=== PATIENT | female | born 1955 | race Caucasian/White ===

== ENCOUNTER → 2017-01-07 | Outpatient (CLI) | payer OTHER ==
[~2017-01-07] MED LIST: REGADENOSON 0.4 MG/5 ML DISP.SYRIN. IV ONE
--- NOTE | 2017-01-07 10:27 | CARD ---
APPROVED REPORT EXAM: Two-dimensional and M-mode echocardiogram with Doppler and color Doppler. Other Information Quality : GoodHR: 55bpm Rhythm : Bradycardia INDICATION Pre-Op Dyspnea on exertion RISK FACTORS Hypertension Obesity 2D DIMENSIONS RVDd3.1 (2.9-3.5cm)Left Atrium(2D)3.8 (1.6-4.0cm) IVSd0.9 (0.7-1.1cm)Aortic Root(2D)2.8 (2.0-3.7cm) LVDd5.7 (3.9-5.9cm)LVOT Diameter2.4 (1.8-2.4cm) PWd0.7 (0.7-1.1cm)LVDs4.1 (2.5-4.0cm) FS (%) 29.0 %SV89.5 ml LVEF(%)55.0 (>50%) Aortic Valve AoV Peak Serge.127.4cm/sAoV VTI29.5cm AO Peak GR.6.5mmHgLVOT Peak Serge.90.9cm/s AO Mean GR.3mmHgAVA (VMAX)3.29cm2 Mitral Valve MV E Dughkdjm50.8cm/sMV E Peak Gr.2mmHg MV DECEL [id number] A Atueozaq10.9cm/s MV E Mean Gr.1mmHgE/A Ratio0.6 MV A Rkmvizhg32ae Pulmonary Valve PV Peak Pnutngfm13.0cm/s Tricuspid Valve TR P. Owpnzjni349ga/sTR Peak Gr.29mmHg Pulmonary Vein S1 Hjiltuik43.0cm/sD2 Xussdjyz13.6cm/s PVa isvwekyr12wric LEFT VENTRICLE The left ventricle is normal size. There is normal left ventricular wall thickness. The left ventricu lar systolic function is normal. The Ejection Fraction is 55-60%. There is normal LV segmental wall m otion. Transmitral Doppler flow pattern is Grade I-abnormal relaxation pattern. RIGHT VENTRICLE The right ventricle is normal size. There is normal right ventricular wall thickness. The right ventr icular systolic function is normal. ATRIA The left atrium size is normal. The right atrium size is normal. The interatrial septum is intact wit h no evidence for an atrial septal defect or patent foramen ovale as noted on 2-D or Doppler imaging. AORTIC VALVE The aortic valve is mildly sclerotic. The aortic valve is trileaflet. Doppler and Color Flow revealed no significant aortic regurgitation. There is no significant aortic valvular stenosis. MITRAL VALVE The mitral valve leaflets are thickened. There is no evidence of mitral valve prolapse. There is no m itral valve stenosis. Doppler and Color Flow revealed mild mitral regurgitation. TRICUSPID VALVE Doppler and Color Flow revealed trace tricuspid regurgitation. The pulmonary artery systolic pressure is estimated at 32 mmHg. There is mild pulmonary hypertension. PULMONIC VALVE The pulmonary valve is not well visualized but appears to opens well. Doppler and Color Flow revealed mild pulmonic valvular regurgitation. There is no pulmonic valvular stenosis by spectral Doppler. GREAT VESSELS The aortic root is normal in size. The ascending aorta is normal in size. The pulmonary artery is nor mal. The IVC is normal in size and collapses >50% with inspiration. PERICARDIAL EFFUSION There is no evidence of significant pericardial effusion. Critical Notification Critical Value: No <Conclusion> The left ventricular systolic function is normal. The Ejection Fraction is 55-60%. There is normal LV segmental wall motion. Transmitral Doppler flow pattern is Grade I-abnormal relaxation pattern. Mild mitral regurgitation. Trace tricuspid regurgitation. The pulmonary artery systolic pressure is estimated at 32 mmHg. There is no evidence of significant pericardial effusion.
--- NOTE | 2017-01-07 14:17 | RAD ---
APPROVED REPORT Test Type: Pharmacological Stress Nurse/Tech: Rojelio Anthony RN Test Indications: abnormal EKG, pre-op Cardiac History: see ehr Medications: see ehr Medical History: see ehr Resting ECG: SB Resting Heart Rate: 56 bpm Resting Blood Pressure: 164/68mmHg Pretest Chest Pain: None Nurse/Tech Notes Lungs CTA, S1, S2 Consent: The procedure was explained to the patient in lay terms. Informed consent was witnessed. Yao eout was entered into [employer]. History and Stress Test performed by Moses JamesNTony Pharm. Details Pharmacologic stress testing was performed using 0.4mg per 5ml of regadenoson given intravenously ove r 7-10 seconds. Stress Symptoms No chest pain or symptoms. POST EXERCISE Reason for Termination: Infusion complete Max HR: 106 bpm Max Blood Pressure: 157/78mmHg Blood Pressure response to exercise: Normal blood pressure response during stress. Chest Pain: No. Arrhythmia: Yes. Intermittent PVC ST Change: No. INTERPRETATION Stress EKG Conclusion: Baseline EKG showed sinus rhythm. No ischemic changes at peak stress. Few PV C's without any significant arrhythmias. Imaging Protocol IMAGE PROTOCOL: Rest Tc-99m/stress Tc-99m 1 day Rest: Stress: Viability: Radiopharm.Tc99m LfjgevnvwRi00t Sestamibi Ffak84pRv 34mCi Img Date 01/07/2017 01/07/2017 Inj-Img Bgio77lrs. 60min. Rest Admin Site:IV - Right WristAdministrator:RT Sanjay (R)(N) Stress Admin Site: IV - Right WristAdministrator: RT Sanjay (R)(N) STRESS DATA End Diast. Vol.93.0mlAv. Heart Rate75.0bpm End Syst. Vol.27.0mlCO Index BSA0.0L/min Myocardial Rtbg470.0gEject. Iruipexk70.0% Stress Rates Pk. Fill Rate2.97EDV/secLVtime Pk. Fill 182.03msec Pk. Empty Rate4.32ESV/secLVtime Pk. Vugig496.80msec 06/10 Pk. Fill1.49EDV/sec Stress Scores Regional WT0.00Summed WT0.00 Regional WM0.00Summed WM0.00 Study quality was good. Left Ventricular size was Normal at Rest and Stress. Lung uptake was Normal. Left Ventricular ejection fraction is 71%. LV Perfusion Scintigraphic images showed small reversible defect involving the anteroapical wall consistent with i schemia. Wall Motion Normal regional wall motion. LV Perf. Quant 17 Seg. SSS6.00 17 Seg. SRS1.00 17 Seg. SDS5.00 Stress Defect Extent (% LAD)5.00Rest Defect Extent (% LAD)0.00Rev. Defect Extent (% LAD)5.00 Stress Defect Extent (% LCX) 30.00Rest Defect Extent (% LCX)11.30Rev. Defect Extent (% LCX)22.50 Stress Defect Extent (% RCA)0.00Rest Defect Extent (% RCA)0.00Rev. Defect Extent (% RCA)0.00 Stress Defect Extent (% MAGALYS)12.40Rest Defect Extent (% MAGALYS)2.00Rev. Defect Extent (% MAGALYS)11.10 Conclusion 1. Regadenoson cardioisotope stress test showed small amount of anteroapical wall ischemia. 2. Normal left ventricular systolic function with ejection fraction calculated at 71%. 3. Low to intermediate risk for cardiac events.
== END | disposition home or self-care (01) ==
LOC: ECHO 07:55
PROVIDERS: ATTEND Internal Medicine Cardiovascular Disease
DX: Z01.818 Encounter for other preprocedural examination (principal); R07.9 Chest pain, unspecified; R06.09 Other forms of dyspnea; I08.1 Rheumatic disorders of both mitral and tricuspid valves
CPT/HCPCS: 78452; 93017; 93306; 96374; 96375; 96376; A9500; J2785

== ENCOUNTER 2017-01-30 06:44 | Outpatient (CLI) | payer OTHER ==
[2017-01-30] VITALS (9 sets, daily range): BP systolic 110–128; BP diastolic 62–73
[~2017-01-30] VITALS: Ht 174 cm; Wt 105.7 kg
[2017-01-30] MEDS ORDERED: LISI1TAB3 PO (07:05)
[2017-01-30] MEDS ORDERED: CETI10TA16 PO (07:05)
[2017-01-30] MEDS ORDERED: PROAIR HFA8.5 GM INH (07:05)
[2017-01-30] MEDS ORDERED: ASPI1TAB2 PO (07:05)
[2017-01-30] MEDS ORDERED: SULI150T PO (07:05)
[2017-01-30 07:30] LABS: HEMATOCRIT 43.2 % (36.0-47.0); HEMOGLOBIN 14.4 g/dL (12.0-15.5); RED BLOOD COUNT 4.58 x10^6/uL (3.50-5.40); RED CELL DISTRIBUTION WIDTH 13.1 % (11.5-14.5); WHITE BLOOD COUNT 10.5 x10^3/uL (4.0-11.0)
[2017-01-30 07:36] LABS: PROTHROMBIN TIME PATIENT 12.5 SEC (11.7-14.0)
[2017-01-30 08:02] LABS: CALCIUM 9.3 mg/dL (8.5-10.1); POTASSIUM 4.2 mmol/L (3.5-5.1)
[2017-01-30] MEDS ORDERED: fentaNYL PF VIAL 100 MCG/2 ML VIAL ONE (08:36)
[2017-01-30] MEDS ORDERED: MIDAZOLAM HCL/PF 5 MG/5 ML VIAL. ONE (08:36)
[2017-01-30] MEDS ORDERED: LIDOCAINE 2% 20 ML VIAL. ONE (08:38)
[2017-01-30] MEDS ORDERED: MIDAZOLAM HCL/PF 5 MG/5 ML VIAL. IV ONE (08:45)
[2017-01-30] MEDS ORDERED: LIDOCAINE 2% 20 ML VIAL. IJ ONE (08:45)
[2017-01-30] MEDS ORDERED: fentaNYL PF VIAL 100 MCG/2 ML VIAL IV ONE (08:45)
--- NOTE | 2017-01-30 08:50 | PDOC ---
MODERATE SEDATION ASSESSMENT RISKS/ALTERNATIVES Risks/Alternatives Risks and alternatives of this type of sedation and procedure discussed with: RISK/ALTERNATIVES: Patient H & P ON CHART H & P H & P on chart and reviewed for co-morbid conditions and appropriate labs. H&P ON CHART: Yes STATUS PREG STATUS ASSESSED: Yes MEDS/ALLERGIES REVIEWED Meds/Allergies Reviewed Medications and Allergies including time and route of recently administered narcotics and sedatives. MEDS/ALLERGIES REVIEWED: Yes ASA RATING ASA RATING: II AIRWAY ASSESSMENT Airway Assessment Airway patency, oral function limitations, presence of caps, crowns, dentures, partials, and ability to extend neck assessed. AIRWAY ASSESSMENT: Yes MALLAMPATI SCORE MALLAMPATI SCORE: II PRE-SEDATION ASSESSMENT PRE-SEDATION ASSESSMENT: Yes CHAO DAVIS MD Jan 30, 2017 08:50
[2017-01-30] MEDS ORDERED: CONTRAST GIVEN MC PRN (09:00)
[2017-01-30] MEDS ORDERED: IODIXANOL 320 MG/ML 100 ML VIAL. IV ONE (09:00)
[2017-01-30] MEDS ORDERED: IV NORMAL SALINE 1000ML BAG 1,000 ML IV SCH (10:01)
[2017-01-30] MEDS ORDERED: 0.9 % SODIUM CHLORIDE 10 ML DISP.SYRIN. IV PRN (10:15)
[2017-01-30] MEDS ORDERED: NITROGLYCERIN SUBLINGUAL 0.4 MG BOTTLE OF 25. SL PRN (10:15)
--- NOTE | 2017-02-04 11:20 | CARD ---
APPROVED REPORT Procedures. Left heart catheterization. Left ventriculogram. Selective coronary angiogram. The patient is a 61-year-old female with episodes of atypical chest pain being seen prior to elective surgery. A nuclear stress test showed probable reversible ischemia. In this setting a cardiac cathet erization was recommended. Risks and benefits were discussed. The patient agreed to proceed. After informed consent was obtained the patient was brought to the heart catheterization lab. The are a of the right femoral artery was prepared in the usual manner with Betadine, sterile draping and loc al anesthetic. An 18-gauge needle was used to enter the right femoral artery, a wire placed and a 6 F rench sheath placed over wire. A 6 Niuean JL4 diagnostic catheter was used to engage the left coronar y system and sequential injections in various views were obtained. A 6 Niuean Parmjit right diagnost ic catheter was used to engage the right coronary artery system and sequential injections in various views were obtained. A pigtail catheter was advanced to the left ventricle. Pressures were obtained. A 30 CLEMENTS left ventriculogram was performed. The catheter was removed from the patient. Injection of the sheath showed normal placement. The sheath was removed and sealed with an Angio-Seal product. The re were no immediate complications. Hemodynamics. Left ventricular pressure of 132/10 and aortic root pressure of 128/60. Coronaries. Left main. Left main was a normal-size vessel with no lesions. Left anterior descending. The LAD was a moderate size vessel with normal distribution. It had a mid 1 0% lesion. Left circumflex. The left circumflex was a large dominant vessel. It had a 15% mid lesion. Right coronary artery. Right coronary was a moderate size vessel. It had no lesions. Left ventriculogram. The left ventricle had low normal LV systolic function with an ejection fraction of 50-55%. <Conclusion> Mild coronary artery disease. Low normal LV systolic function.
== END 2017-01-30 13:20 | disposition home or self-care (01) ==
LOC: CCL 06:44
PROVIDERS: ATTEND Internal Medicine Cardiovascular Disease
DX: I25.10 Atherosclerotic heart disease of native coronary artery without angina pectoris (principal); E78.00 Pure hypercholesterolemia, unspecified; J45.909 Unspecified asthma, uncomplicated; M19.91 Primary osteoarthritis, unspecified site; F41.9 Anxiety disorder, unspecified; Z86.69 Personal history of other diseases of the nervous system and sense organs; Z72.0 Tobacco use; Z90.49 Acquired absence of other specified parts of digestive tract; Z87.442 Personal history of urinary calculi; Z87.39 Personal history of other diseases of the musculoskeletal system and connective tissue; Z88.0 Allergy status to penicillin
CPT/HCPCS: 36415; 80048; 85027; 85610; 85730; 93458; 99152; 99153; C1769; C1771; C1892; G0269; J1644; J2250; J3010; J2001

== ENCOUNTER 2017-03-04 19:08 | Emergency (ER) | payer OTHER ==
[~2017-03-04] VITALS: Ht 172.7 cm; Wt 105.7 kg
[~2017-03-04 19:08] MED LIST changes: +ASPI-621 PO; +CETI10TA16 PO; +LISI1TAB3 PO; +PROAIR HFA8.5 GM INH; -REGADENOSON 0.4 MG/5 ML DISP.SYRIN. IV ONE; +SULI150T PO
[2017-03-04] MEDS ORDERED: IV NORMAL SALINE 1000ML BAG 1,000 ML IV ONE (19:45)
[2017-03-04 19:48] LABS: BILIRUBIN,URINE NEGATIVE (NEG); GLUCOSE,URINE NEGATIVE (NEG); NITRITE,URINE NEGATIVE (NEG); PH,URINE 5.5; PROTEIN,URINE NEGATIVE (NEG-TRACE); UROBILINOGEN,URINE 0.2 mg/dL (0.2 mg/dL)
[2017-03-04 19:58] LABS: BACTERIA,URINE MODERATE /HPF (0-FEW); RBC,URINE 0 /HPF (0-2); SQUAMOUS EPITHELIAL CELL,UR MOD /LPF; WBC,URINE OCC /HPF (0-4)
[2017-03-04 20:07] LABS: BASO # 0.1 x10^3/uL (0.0-0.2); BASO % 1 % (0-3); EOS % 1 % (0-3); HEMATOCRIT 45.2 % (36.0-47.0); HEMOGLOBIN 14.8 g/dL (12.0-15.5); LYMPH # 1.4 x10^3/uL (1.0-4.8); LYMPH % 10 % (24-48); MEAN CORPUSCULAR HEMOGLOBIN 31 pg (25-35); MEAN CORPUSCULAR HGB CONC 33 g/dL (31-37); MEAN CORPUSCULAR VOLUME 96 fL (79-100); MONO % 5 % (0-9); NEUT % 83 % (31-73); PLATELET COUNT 348 x10^3/uL (140-400); RED BLOOD COUNT 4.73 x10^6/uL (3.50-5.40); RED CELL DISTRIBUTION WIDTH 13.1 % (11.5-14.5); WHITE BLOOD COUNT 13.4 x10^3/uL (4.0-11.0)
[2017-03-04 20:25] LABS: CALCIUM 10.2 mg/dL (8.5-10.1); CREATININE 1.1 mg/dL (0.6-1.0); GFR 50.2; POTASSIUM 3.8 mmol/L (3.5-5.1)
[2017-03-04 20:31] LABS: ALBUMIN 4.3 g/dL (3.4-5.0); ALBUMIN/GLOBULIN RATIO 0.9 (1.0-1.7); TOTAL BILIRUBIN 0.4 mg/dL (0.2-1.0); TOTAL PROTEIN 8.9 g/dL (6.4-8.2)
[2017-03-04 20:51] VITALS: BP 139/72
--- NOTE | 2017-03-04 21:31 | PHYS DOC ---
Past Medical History Past Medical History: Diabetes-Type II, Hypertension, Other Additional Past Medical Histor: PE's Past Surgical History: Appendectomy, Cholecystectomy, Other Additional Past Surgical Histo: meniscus repair, lumpectomy groin, gum sx, cyst left ear Alcohol Use: Occasionally Drug Use: None Adult General Chief Complaint Chief Complaint: BLOOD SUGAR PROBLEM HPI HPI Patient is a 61 year old female who presents here today secondary to further evaluation of her blood sugar. Patient reports that she was recently diagnosed with a pulmonary embolism while she was in hospital last week she was also diagnosed with new-onset diabetes. Patient is currently taking Januvia and metformin however she reports that today she started feeling shaky. She talked to the nursing station at the hospital that she was just discharged from a day requested that she take her sugar tablets a sandwich and some juice. Patient denies any new symptoms. Patient has any fevers shakes chills nausea vomiting diarrhea chest pain shortness of breath cough cold rhinorrhea. Patient is eating and drinking well. Patient reports that she has put herself on an extremely strict diet with no cords and she thinks is probably why her blood sugar dropped. Patient reports she currently feels back to her baseline self. Patient reports that while she was at work she did not have her blood sugar meter with her. Patient reports that she told her to be her here in the hospital. In the parking lot she checked her blood sugar and her blood sugar was greater than 202 she can in for further evaluation. Review of systems Constitutional: Denies fever or chills Eyes: Denies change in visual acuity, redness, or eye pain All other review systems are negative except as documented in the history of present illness portion. Physical exam Constitutional: Well developed, well nourished, no acute distress, non-toxic appearance. HENT: Normocephalic, atraumatic, bilateral external ears normal, oropharynx moist, no oral exudates, nose normal. Eyes: conjunctiva normal, no discharge. Neck: Normal range of motion, no tenderness, supple, no stridor. Cardiovascular:Heart rate regular rhythm, Lungs & Thorax: Bilateral breath sounds clear to auscultation Abdomen: Bowel sounds normal, soft, no tenderness, no masses, no pulsatile masses. Skin: Warm, dry, Back: No tenderness, Extremities: No tenderness, no cyanosis, Neurologic: Alert and oriented X 3, normal motor function, normal sensory function, no focal deficits noted. Psychologic: Affect normal, judgement normal, mood normal. Assessment and plan This is a 61-year-old female who presents here today secondary to hyperglycemia further evaluation of her new onset type 2 diabetes. Patient's clinically hemodynamically stable. Patient is not exhibiting any signs or symptoms of be consistent with DKA. Patient does not appear to be clinically dehydrated. Patient had a liter of saline IV given and her blood sugar currently is approximate 155. Patient has no signs or symptoms consistent with an infection. Patient was instructed to call her primary care physician in the morning for further diabetes counseling and instructions. Patient reports that she is supposed to go to a diabetes education course. Patient's clinically hemodynamically stable for discharged home at this time. There is no further indication for inpatient or any further ER evaluation at this time. Current Medications Current Medications Current Medications Medications (Trade) Dose Ordered Sig/Elijah Start Time Stop Time Status Last Admin Dose Admin Sodium Chloride 1,000 ml @ 1,000 mls/hr 1X ONCE 03/04/17 19:45 03/04/17 20:44 DC 03/04/17 19:46 1,000 MLS/HR Allergies Allergies Allergies Coded Allergies Type Severity Reaction Last Updated Verified Penicillins Allergy Intermediate Itching 01/07/17 Yes Current Patient Data Vital Signs Vital Signs Date Time Temp Pulse Resp B/P (MAP) Pulse Ox O2 Delivery O2 Flow Rate FiO2 03/04/17 20:51 79 18 139/72 (94) 99 Room Air 03/04/17 19:14 97.6 97.6 Lab Values Laboratory Tests Test 03/04/17 19:20 03/04/17 19:35 03/04/17 19:50 03/04/17 21:11 Glucose (Fingerstick) 270 mg/dL (70-99) H 159 mg/dL (70-99) H Urine Collection Type Unknown Urine Color Yellow Urine Clarity Clear Urine pH 5.5 Urine Specific [place] 1.010 Urine Protein Negative mg/dL (NEG-TRACE) Urine Glucose (UA) Negative mg/dL (NEG) Urine Ketones (Stick) Trace mg/dL (NEG) Urine Blood Negative (NEG) Urine Nitrite Negative (NEG) Urine Bilirubin Negative (NEG) Urine Urobilinogen Dipstick 0.2 mg/dL (0.2 mg/dL) Urine Leukocyte Esterase Negative (NEG) Urine RBC 0 /HPF (0-2) Urine WBC Occ /HPF (0-4) Urine Squamous Epithelial Cells Mod /LPF Urine Bacteria Moderate /HPF (0-FEW) Urine Mucus Slight /LPF White Blood Count 13.4 x10^3/uL (4.0-11.0) H Red Blood Count 4.73 x10^6/uL (3.50-5.40) Hemoglobin 14.8 g/dL (12.0-15.5) Hematocrit 45.2 % (36.0-47.0) Mean Corpuscular Volume 96 fL (79-100) Mean Corpuscular Hemoglobin 31 pg (25-35) Mean Corpuscular Hemoglobin Concent 33 g/dL (31-37) Red Cell Distribution Width 13.1 % (11.5-14.5) Platelet Count 348 x10^3/uL (140-400) Neutrophils (%) (Auto) 83 % (31-73) H Lymphocytes (%) (Auto) 10 % (24-48) L Monocytes (%) (Auto) 5 % (0-9) Eosinophils (%) (Auto) 1 % (0-3) Basophils (%) (Auto) 1 % (0-3) Neutrophils # (Auto) 11.1 x10^3uL (1.8-7.7) H Lymphocytes # (Auto) 1.4 x10^3/uL (1.0-4.8) Monocytes # (Auto) 0.7 x10^3/uL (0.0-1.1) Eosinophils # (Auto) 0.2 x10^3/uL (0.0-0.7) Basophils # (Auto) 0.1 x10^3/uL (0.0-0.2) Sodium Level 138 mmol/L (136-145) Potassium Level 3.8 mmol/L (3.5-5.1) Chloride Level 98 mmol/L (98-107) Carbon Dioxide Level 27 mmol/L (21-32) Anion Gap 13 (6-14) Blood Urea Nitrogen 23 mg/dL (7-20) H Creatinine 1.1 mg/dL (0.6-1.0) H Estimated GFR (Cockcroft-Gault) 50.2 BUN/Creatinine Ratio 21 (6-20) H Glucose Level 218 mg/dL (70-99) H Calcium Level 10.2 mg/dL (8.5-10.1) H Total Bilirubin 0.4 mg/dL (0.2-1.0) Aspartate Amino Transferase (AST) 47 U/L (15-37) H Alanine Aminotransferase (ALT) 86 U/L (14-59) H Alkaline Phosphatase 159 U/L (46-116) H Troponin I Quantitative < 0.017 ng/mL (0.000-0.055) Total Protein 8.9 g/dL (6.4-8.2) H Albumin 4.3 g/dL (3.4-5.0) Albumin/Globulin Ratio 0.9 (1.0-1.7) L Lipase 289 U/L (73-393) Laboratory Tests 03/04/17 19:50 Laboratory Tests 03/04/17 19:50 EKG EKG [] Radiology/Procedures Radiology/Procedures [] Course & Med Decision Making Course & Med Decision Making Pertinent Labs and Imaging studies reviewed. (See chart for details) [] Dragon Disclaimer Dragon Disclaimer This electronic medical record was generated, in whole or in part, using a voice recognition dictation system. Departure Departure Impression: Primary Impression: Hyperglycemia Additional Impression: Type 2 diabetes mellitus Disposition: 01 HOME, SELF-CARE Condition: IMPROVED Referrals: SAMIR BRANHAM MD (PCP) Patient Instructions: Hyperglycemia, Type 2 Diabetes Mellitus, Adult Additional Instructions: Please follow up with her family doctor for further evaluation of your new onset diabetes. Problem Qualifiers ANNABEL DE LEON MD Mar 04, 2017 21:31
== END 2017-03-04 21:59 | disposition home or self-care (01) ==
LOC: ER 19:08
DX: E11.65 Type 2 diabetes mellitus with hyperglycemia (principal); I10 Essential (primary) hypertension; Z86.711 Personal history of pulmonary embolism; Z90.49 Acquired absence of other specified parts of digestive tract; Z88.0 Allergy status to penicillin
CPT/HCPCS: 36415; 80053; 81001; 82962; 83690; 84484; 85025; 87086; 96360; 99284; J7030

== ENCOUNTER → 2017-09-11 | Outpatient (CLI) | payer OTHER ==
[~2017-09-11] MED LIST changes: -ASPI-621 PO; -CETI10TA16 PO; +CONTRAST GIVEN MC; -LISI1TAB3 PO; -PROAIR HFA8.5 GM INH; -SULI150T PO
[2017-09-11] MEDS: IOHEXOL 300 MG/ML 100ML VIAL. IV (12:52)
[2017-09-11 13:00] LABS: ISTAT CREATININE 0.9 mg/dL (0.6-1.1)
== END | disposition home or self-care (01) ==
LOC: KCIC CT 12:20
DX: R07.89 Other chest pain (principal); Z86.711 Personal history of pulmonary embolism
CPT/HCPCS: 71275; 82565; Q9967

== ENCOUNTER → 2017-10-15 | Outpatient (CLI) | payer OTHER | END | disposition home or self-care (01) | LOC: KCIC US 14:56 | DX: R93.8 Abnormal findings on diagnostic imaging of other specified body structures (principal); Z86.711 Personal history of pulmonary embolism | CPT/HCPCS: 76536 ==

== ENCOUNTER → 2019-08-03 | Outpatient (CLI) | payer OTHER ==
[~2019-08-03] MED LIST changes: +ALBU2.5V8 INH; +ASPI-621 PO; +CETI10TA16 PO; -CONTRAST GIVEN MC; +LISI1TAB23 PO; +SULI150T PO
--- NOTE | 2019-08-03 15:36 | KCIC ---
EXAM: Bilateral screening mammogram. HISTORY: 63-year-old female presents for screening mammography. TECHNIQUE: Full-field digital craniocaudal and mediolateral oblique views of both breasts are obtained for evaluation. Computer aided detection with WrnchD software version 9.3 was applied. COMPARISON: 08/28/2011 BREAST PARENCHYMAL DENSITY: Level C - Heterogeneously dense. FINDINGS: There is no new suspicious mass, microcalcification or region of architectural distortion. There are stable areas of asymmetry within both breasts. There are benign calcifications within both breasts. IMPRESSION: BI-RADS Category 2: Benign finding(s). RECOMMENDATION: Annual mammography is recommended. If your mammogram demonstrates that you have dense breast tissue, which could hide abnormalities, and if you have other risk factors for breast cancer that have been identified, you might benefit from supplemental screening tests that may be suggested by your ordering physician. Dense breast tissue, in and of itself, is a relatively common condition. This information is not provided to cause undue concern, but rather to raise your awareness and to promote discussion with your physician regarding the presence of other risk factors, in addition to dense breast tissue. A report of your mammography results will be sent to you and your physician. You should contact your physician if you have any questions or concerns regarding this report. Mammography is a sensitive method for finding small breast cancers, but it does not detect them all and is not a substitute for careful clinical examination. A negative mammogram does not negate a clinically suspicious finding and should not result in delay in biopsying a clinically suspicious abnormality. PQRS compliance statement - Patient information was entered into a reminder system with a target due date for the next mammogram. "Our facility is accredited by the [employer] Mammography Program." Electronically signed by: Kristen Crabtree MD (08/03/2019 3:33 PM) [facility]
== END ==
LOC: KCIC MAMMO 14:58
PROVIDERS: ATTEND Family Medicine
DX: Z12.31 Encounter for screening mammogram for malignant neoplasm of breast (principal)
CPT/HCPCS: 77067

== ENCOUNTER → 2020-09-13 | Outpatient (CLI) | payer OTHER ==
--- NOTE | 2020-09-14 10:21 | KCIC ---
EXAM: XR ABDOMEN 1V 09/13/2020 3:00 PM CLINICAL INDICATION: Back pain, right flank pain, recent kidney stone COMPARISON: None TECHNIQUE: AP view of the abdomen FINDINGS: Bowel gas pattern is nonspecific and nonobstructive. Moderate volume of stool. No definite radiopaque nephrolithiasis. There are cholecystectomy clips. Calcified uterine fibroids are noted. T here is mild levoscoliosis and moderate degenerative disc disease in the lumbar spine. The bones appe ar demineralized. IMPRESSION: No definite nephrolithiasis. Electronically signed by: Vanessa Camacho MD (09/14/2020 10:19 AM) [id number]
== END ==
LOC: KCIC 14:09
PROVIDERS: ATTEND Family Medicine
DX: M51.36 Other intervertebral disc degeneration, lumbar region (principal); M54.5 Low back pain; D25.9 Leiomyoma of uterus, unspecified; M41.86 Other forms of scoliosis, lumbar region; Z90.49 Acquired absence of other specified parts of digestive tract
CPT/HCPCS: 74018

== ENCOUNTER → 2021-06-24 | Outpatient (CLI) | payer OTHER ==
[~2021-06-24] MED LIST changes: -LISI1TAB23 PO; +LISI1TAB35 PO
--- NOTE | 2021-06-24 16:11 | KCIC ---
Bilateral digital screening mammograms: Reason for examination: Routine screening. Comparison is made to previous studies dated 08/03/2019 and 08/28/2011. Interpretation was made with the benefit of CAD. The skin and nipples show no abnormalities. No abnormal axillary lymph nodes are seen. The breast par enchyma is heterogeneously dense. (Breast density: Category C) There continue to be small nodular par enchymal densities present bilaterally which are stable. In the right breast however, there appear to be new nodules anteriorly at approximately the 3:00 B position 6.5 cm from the nipple measuring 1 cm in size and in the central 1:00 B position of the right breast approximately 12 cm from the nipple m easuring 1.2 cm in size. Further evaluation with ultrasound is recommended. There are no other new do minant masses, suspicious calcifications or architectural distortion. Benign-appearing calcifications are again seen bilaterally. Impression: Small nodular densities in the right breast probably at the 3:00 B position 6.5 cm from the nipple me asuring 1 cm in size and in the central 1:00 B position of the right breast 12 cm from the nipple gen suring 1.2 cm in size. Recommend further evaluation with ultrasound. Your patient's mammogram demonstrates that she has dense breast tissue (breast density category C or D), which could hide abnormalities, and if she has other risk factors for breast cancer that have bee n identified, she might benefit from supplemental screening tests that may be suggested by you as her ordering physician. Dense breast tissue, in and of itself, is a relatively common condition. Therefo re, this information is not provided to cause undue concern, but rather to raise your awareness and t o promote discussion with your patient regarding the presence of other risk factors, in addition to d ense breast tissue. Your patient's mammography results will be sent to her. BI-RADS Category 0: Incomplete. Needs additional imaging evaluation. "Our facility is accredited by the [employer] Mammography Program." This patient's information has been entered into a reminder system for the patient to be notified wit h the results of her examination and a target date for the next mammogram. Electronically signed by: Diana Puente MD (06/24/2021 4:08 PM) [id number]
--- NOTE | 2021-06-24 16:45 | KCIC ---
INDICATION: Screening for osteopenia/osteoporosis. Reason: MENOPAUSAL / Spl. Instructions: / Histor y: COMPARISON: None. TECHNIQUE: Bone densitometry was performed through the lumbar spine and proximal femur. IMPRESSION: Lumbar Spine: BMD: 0.9 T-Score: -1.3 Range: Osteopenic. Degenerative changes spine. Proximal Femur: BMD: 0.7 T-Score: -2.0 Range: Osteopenic World Health Organization Criteria for Bone Density: T-Score: > -1.0: Normal Range < -1.0 to -2.5: Osteopenic Range < -2.5: Osteoporotic Range Electronically signed by: Sushil Blandon MD (06/24/2021 4:43 PM) [id number]
== END ==
LOC: KCIC MAMMO 15:35
PROVIDERS: ATTEND Family Medicine
DX: Z12.31 Encounter for screening mammogram for malignant neoplasm of breast (principal); M85.89 Other specified disorders of bone density and structure, multiple sites; M47.819 Spondylosis without myelopathy or radiculopathy, site unspecified; Z78.0 Asymptomatic menopausal state
CPT/HCPCS: 77067; 77080

== ENCOUNTER → 2021-07-23 | Outpatient (CLI) | payer OTHER ==
--- NOTE | 2021-07-23 16:37 | KCIC ---
Right breast diagnostic digital mammograms: Reason for examination: Calcifications on screening mammogram. Comparison is made to previous study dated 06/24/2021. Coned compression magnification views were obtained in CC and true lateral projections. There appear to be some clustered punctate calcifications adjacent to coarse calcifications centrally in the 12:00 position of the right breast 1.5 cm above the nipple line and located approximately 12 cm posterior to the nipple. These may represent some sclerosing adenosis but appear to be new since p revious exam. IMPRESSION: New clustered calcifications in the central 12:00 position of the right breast 12 cm posterior to the nipple. Further evaluation with stereotactic biopsy is recommended. These calcifications do not silvina espond to the area of concern seen on ultrasound examination. BI-RADS Category 4: Suspicious. Right breast ultrasound: Ultrasound examination of the right breast and axilla was performed. At the 1:00 position 9 cm from the nipple, there is a 1.4 cm hypoechoic lesion with some punctate ech ogenicity which may represent calcifications. At the 3:00 position 5.5 cm from the nipple, there appe ars to be a 9.9 mm cystic lesion. There is some ductal ectasia in the retroareolar position. No abnor mal appearing lymph nodes are seen in the right axilla. IMPRESSION: 1.4 cm hypoechoic nodule at the 1:00 position 9 cm from the nipple which appears contained some echog enic foci which may represent calcifications. Further evaluation with ultrasound-guided biopsy is rec ommended. Following the ultrasound-guided biopsy on postbiopsy mammogram, evaluate correlation of the biopsy site with the calcification seen mammographically. If these do not correlate, further evaluat ion with stereotactic biopsy is recommended. BI-RADS Category 4: Suspicious. These findings have been discussed with the patient and the claim review medical director for Dr. Clemons was notif ied about these findings via a message left on voicemail available at 4:30 PM on 07/23/2021. "Our facility is accredited by the [employer] Mammography Program." Electronically signed by: Diana Puente MD (07/23/2021 4:35 PM) [id number]
== END ==
LOC: KCIC US 14:03
PROVIDERS: ATTEND Family Medicine
DX: R92.1 Mammographic calcification found on diagnostic imaging of breast (principal); N63.11 Unspecified lump in the right breast, upper outer quadrant
CPT/HCPCS: 76641; 77065

== ENCOUNTER → 2021-08-12 | Outpatient (CLI) | payer OTHER ==
[~2021-08-12] MED LIST changes: +LIDOCAINE 1% Multi-Dose 20 ML VIAL. INJ ONE; +LIDOCAINE 2%/EPI 1:100,000 20 ML VIAL. INJ ONE
--- NOTE | 2021-08-12 13:31 | RAD ---
MG STERO NEEDLE LOC BRST RT, US BREAST BIOPSY 1ST LESION, MG DIAGNOSTICUNILAT MAMMO Clinical Indication: Microcalcifications 12:00 position 12 cm from the nipple. Hypoechoic nodule 1:00 position 9 cm from the nipple. Comparison: Diagnostic right mammogram and breast ultrasound 07/23/2021. Procedure: Ultrasound guided right breast biopsy: Relative benefits, risks including bleeding, infection, damage to blood vessels, and pain; and altern atives to the procedure were discussed and written informed consent was obtained. With sterile technique, local anesthesia and ultrasound guidance, percutaneous biopsy was performed w ith a 14-gauge needle and multiple passes were obtained through the target. Needle removed, hemostasi s achieved. A marker was placed, and post procedure CC and ML views were obtained. A biopsy clip is at the expect ed location. The area biopsied is separate from the microcalcifications. The procedure was well tolerated. There is no immediate complication. Stereotactic right breast biopsy: The risks including bleeding, infection, damage to blood vessel, and pain; alternatives, and benefits of the procedure are discussed with the patient. Written informed consent is obtained. A timeout pro cedure was performed. Patient is positioned upright. A superior approach is utilized. Stereotactic views were obtained. Ski n site is clean in normal sterile fashion. 1% lidocaine is used for superficial anesthesia. 1% lidoca ine with epinephrine is used for deep anesthesia. Using sterile technique and guidance, vacuum assisted core biopsy samples were obtained. Biopsy marke r is deployed. The needle is removed. Hemostasis achieved. Patient tolerated the procedure well. Ther e is no immediate complication. Specimen radiograph demonstrates numerous microcalcifications in the sample. Postprocedure CC and ML mammogram views obtained. The biopsy clip is in the region of the previously seen microcalcifications. No residual microcalcifi cations are appreciated. Impression: 1. Ultrasound guided right breast biopsy. 2. Stereotactic guided biopsy of right breast microcalcifications. Pathology is pending. Electronically signed by: Luis Antonio Stevens MD (08/12/2021 1:28 PM) [facility]
--- NOTE | 2021-08-16 17:15 | PATHOLOGY ---
[facility] Accession Number: [id number] . 01 Material submitted: . PART A: breast - RIGHT BREAST MASS 1:00 9CMFN. Modifiers: right PART B: breast - RIGHT BREAST TISSUE. Modifiers: right . 01 Clinical history: . RIGHT BREAST MASS . 02 Diagnosis: A. Breast tissue, right breast mass 1:00 9 cm from nipple needle biopsies: - Stromal fibrosis with focal mild duct ectasia and microcalcifications. . B. Breast tissue, right breast calcifications stereotactic needle biopsies: - Papillary lesion. See comment. - Calcifications identified. (JPM:composition weatherboard applier:db; 08/14/2021) MBR 08/16/2021 1444 Local . 02 Comment: Sections of the right breast stereotactic biopsy reveal multiple fragments of a papillary lesion which are largely unattached to breast stroma and parenchyma. The fragmented papillary lesions have a central fibrovascular core and are surmounted by a stratified layer of relatively uniform cells with focal apocrine metaplasia. There are focal micropapillary projections and focal bridging of the epithelium lining the papillary lesions. Segments of intact breast parenchyma show focal ductal epithelial hyperplasia. There are focal coarse calcifications present. Immunoperoxidase stains for myoepithelial cells are obtained and yield the following results: . p63 (B1): Presence of myoepithelial cells within papillary lesion . Smooth muscle myosin heavy chain (B1): Presence of myoepithelial cells within papillary lesion . p63 (B2): Presence of myoepithelial cells within papillary lesion . Smooth muscle myosin heavy chain (B2): Presence of myoepithelial cells within papillary lesion . 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 The differential diagnosis includes papilloma with atypia. As this is a papillary lesion, would recommend excision. The case is also examined by Dr. Giuliana Judd, who concurs with the diagnosis. (JPM/db; 08/16/2021) . Special stains performed: Immunoperoxidase stains for p63 on B1 and B2 and smooth muscle myosin heavy chain on B1 and B2 . 02 Electronically signed: . Anders Barkley MD, Pathologist NPI- [id number] . 01 Gross description: . A. The specimen is received in formalin, labeled "Tisch, Genny, Rt breast 100 9 cmFN" and consists of multiple cylindrical fatty fibrotic tissues ranging in length from 0.3 cm to 1.8 cm and each averaging 0.2 cm diameter. The specimen is submitted in toto in 3 cassettes. The cold ischemic time is less than 60 seconds. The total time in formalin is 9 hours. . B. The specimen is received in formalin, labeled "Tisch, Genny, Rt breast calcifications" and consists of multiple fatty cylindrical tissue fragments aggregating 2.0 x 1.9 x 0.3 cm which are submitted in toto in 2 cassettes. The cold ischemic time is 4 minutes. The total time in formalin is 8 hours. (KLAMATH; 08/12/2021) DKA/DKA 08/12/2021 1601 Local . 02 Pathologist provided ICD-10: N60.31, N60.41 . 02 CPT . 762189, 634630, B08744, [id number] Specimen Comment: A courtesy copy of this report has been sent to [phone] Specimen Comment: Report sent to Specimen Comment: A duplicate report has been generated due to demographic updates. Performed at: 01 [facility] [address], [place] [id number] MD Marques Good MD Phone: [phone] Performed at: 02 [facility] [address] [place], [place] [id number] MD Anders Barkley MD Phone: [phone]
== END | disposition home or self-care (01) ==
LOC: US 08:24
PROVIDERS: ATTEND Surgery
DX: R92.1 Mammographic calcification found on diagnostic imaging of breast (principal); R92.8 Other abnormal and inconclusive findings on diagnostic imaging of breast; N63.12 Unspecified lump in the right breast, upper inner quadrant; N60.31 Fibrosclerosis of right breast; N60.41 Mammary duct ectasia of right breast; I10 Essential (primary) hypertension; E78.00 Pure hypercholesterolemia, unspecified; J45.909 Unspecified asthma, uncomplicated; M19.90 Unspecified osteoarthritis, unspecified site; M10.9 Gout, unspecified; F41.9 Anxiety disorder, unspecified; Z79.82 Long term (current) use of aspirin; Z79.899 Other long term (current) drug therapy; Z90.49 Acquired absence of other specified parts of digestive tract; Z98.890 Other specified postprocedural states; Z88.0 Allergy status to penicillin; Z72.89 Other problems related to lifestyle
CPT/HCPCS: 19081; 19083; 77065; A4648; C1819; J3490

== ENCOUNTER 2021-09-12 07:24 | Day surgery (SDC) | payer OTHER ==
[~2021-09-12] VITALS: Ht 174 cm; Wt 103.0 kg
[~2021-09-12 07:24] MED LIST changes: +ATOR20TA58 PO; +BUPIVACAINE-EPI 0.5% 30 ML VIAL KIT. ONE; +CHOL5000 PO; +FEBU40TA PO; +GLIP2.5T4 PO; +IBUP-1007 PO; -LIDOCAINE 1% Multi-Dose 20 ML VIAL. INJ ONE; +LIDOCAINE 1%/EPI 1:100,000 20 ML VIAL. ONE; -LIDOCAINE 2%/EPI 1:100,000 20 ML VIAL. INJ ONE; +METF500T16 PO
[2021-09-12] MEDS ORDERED: INSULIN LISPRO 100 UNIT/ML 3ML VIAL for OP,RR ONLY. SQ PRN (07:45)
[2021-09-12 07:56] VITALS: BP 146/68
[2021-09-12] MEDS ORDERED: IV RINGERS,LACTATED 1000ML 1,000 ML IV SCH (08:15)
[2021-09-12] MEDS ORDERED: PROPOFOL 10 MG/ML (20ML) VIAL. IV ONE (09:59)
[2021-09-12] MEDS ORDERED: ONDANSETRON PF 4 MG/2 ML VIAL. ONE (10:00)
[2021-09-12] MEDS ORDERED: DEXAMETHASONE SOD PHOS 4 MG/ML VIAL ONE (10:00)
[2021-09-12] MEDS ORDERED: LIDOCAINE 2% PF 5 ML VIAL. ONE (10:00)
[2021-09-12] MEDS ORDERED: LIDOCAINE 1% Multi-Dose 20 ML VIAL. ONE (10:00)
[2021-09-12] MEDS ORDERED: fentaNYL PF VIAL 100 MCG/2 ML VIAL ONE ×2 (10:23→12:07)
[2021-09-12] MEDS ORDERED: SEVOFLURANE 61 TO 120 MINUTES. IH ONE (10:49)
[2021-09-12] MEDS ORDERED: ePHEDrine PF IN SALINE 50 MG/10 ML SYRINGE. IV ONE (11:33)
--- NOTE | 2021-09-12 12:12 | PDOC4 ---
Operative Note Operative Note Operative Note: Preoperative Diagnosis: Right breast mass Postoperative Diagnosis: Same Procedure: Wire localized excisional right breast biopsy Surgeon: Emerson Measurer Machine: ESTELLE Yates, Alex Mack MS 3 Anesthesia: General EBL: 20 mL Specimen: Right breast specimen to pathology Drains: None Complications: None Indication: The patient is a 65-year-old female who recently underwent a core needle right breast biopsy for mammographic abnormality. This identified a papillary lesion and she was referred for a wider surgical excision. The details and risks of surgery were discussed with the patient. The risks include bleeding, infection, inability to localize, pain, scar tissue, wound healing problems, anesthetic risk, potential need for additional surgery procedure. She understands and would like to proceed. Description: The patient was initially taken to radiology where she underwent wire localization of the lesion in question. She was then brought to the operating room. General anesthesia was performed. The right breast was prepped with ChloraPrep and draped in a standard surgical manner. The wire was seen entering the superior medial aspect. An incision was made adjacent to the wire with a scalpel. Cautery dissection was carried down into the breast parenchyma. The wire was identified and followed toward its distal tip. A generous amount of breast tissue was excised along the course of the wire. The specimen was fully excised and sent to x-ray. Specimen radiograph confirmed the wire and clip to be present. Hemostasis was achieved with cautery. The subcutaneous tissue was approximated with 3-0 Vicryl. Skin was closed with 4-0 Monocryl and infiltrated with half percent Marcaine with epinephrine. Steri-Strips and a sterile dressing were applied. The patient tolerated the procedure well and was sent to the recovery room in stable condition. At the end the case all counts were correct. PIYUSH DAMICO MD Sep 12, 2021 12:12
[2021-09-12] MEDS ORDERED: fentaNYL PF VIAL 100 MCG/2 ML VIAL IVP PRN ×2 (12:15)
[2021-09-12] MEDS ORDERED: HYDR-2761 PO (12:15)
[2021-09-12] MEDS ORDERED: PROCHLORPERAZINE 10 MG/2 ML VIAL. IVP PRN (12:15)
[2021-09-12] MEDS ORDERED: MORPHINE SULFATE 2 MG/ML INJ. IVP PRN (12:15)
[2021-09-12] MEDS ORDERED: HYDROmorphone 2 MG/ML INJ. IVP PRN (12:15)
--- NOTE | 2021-09-12 12:18 | DISCH ---
DISCHARGE INSTRUCTIONS Condition on Discharge Condition on Discharge: Stable Activity After Discharge Activity Instructions for Disc: Activity as tolerated Diet after Discharge Diet after Discharge: Regular Wound Incision Care Wound/Incision Care: Other, see below (keep dressing clean and dry X 72 hours, may then remove and shower) Follow-Up Follow up with: Dr Damico in 1 week in office, call for appointment [phone] PIYUSH DAMICO MD Sep 12, 2021 12:18
[2021-09-12] MEDS ORDERED: HYDROcodone/APAP 5/325MG 1 TAB TABLET ONE (12:28)
[2021-09-12] MEDS ORDERED: HYDROcodone/APAP 5/325MG 1 TAB TABLET PO ONE (12:30)
[2021-09-12 12:39] VITALS: BP 109/62
--- NOTE | 2021-09-19 12:10 | PATHOLOGY ---
[facility] Accession Number: [id number] . 01 Material submitted: . breast - RIGHT BREAST MASS. Modifiers: right . 01 Clinical history: . RIGHT BREAST MASS . 02 Diagnosis: Breast "right mass", excisional biopsy: - Intraductal papilloma. - Fibrocystic changes, including usual ductal hyperplasia, cyst formation, adenosis and apocrine metaplasia. - Incidental sclerotic fibroadenoma. - Biopsy site changes. - Negative for atypia and malignancy. (SCOTT:tim; 09/18/2021) MBR 09/19/2021 1120 Local . 02 Comment: The case is seen in co-review, with consensus, by Dr. Giuliana Judd on 09/19/2021. . 02 Electronically signed: . Andrew Abdi MD, Pathologist NPI- [id number] . 01 Gross description: . Fixative: Formalin Labeled: Right breast mass Specimen received: An unoriented mass of breast tissue with two protruding needle ends Oriented: No (yes, no, describe sutures) Dimensions: 8.5 x 6.0 x 1.8 cm Weight: 42 g . The external surface of the specimen displays multiple gonsalez-white to pink, indurated, fibrotic areas. The external surface of the specimen is entirely inked black. . Sectioned: Perpendicular to long axis Number of slices: 18 . Lesion: Sectioning reveals an ill-defined, irregularly shaped, area of gonsalez-white to pink, fibrotic and indurated tissue, measuring 5.3 x 4.5 x 1.4 cm. Lesion location: Slices 1-10 Lesion to margins: The lesion is at the margin is in all 10 slices . Biopsy clip: No. The localizing needle pierces through the fibrous area. Uninvolved breast tissue: Comprised of 95% yellow lobulated adipose tissue and 5% white fibrous tissue. No additional masses or lesions are grossly identified. . The specimen is submitted as follows: A1: Slice 1, perpendicular A2: Slices 2 A3: Slice 3, bisected A4: Slice 4, fragmented A5: Slice 5, bisected A6-A7: Slice 6, bisected A8-A9: Slice 7, bisected A10-A11: Slice 8, bisected A12-A13: Slice 9, bisected A14-A15: Slice 10, bisected A16-A17: Slice 11, bisected A18: Slice 14, represented (uninvolved breast tissue) A19-A20: Slice 18, perpendicular . The specimen is removed from the patient at 1122 and placed in formalin at 1144 on 09/12/2021. The specimen is removed from formalin at 1950 on 09/13/2021. The specimen is in formalin for greater than 6 hours and less than 72 hours. (J; 09/13/2021) [facility]icit[facility] 09/13/2021 1605 Local . 02 Microscopic: . Immunohistochemical stain results (properly controlled): P63 (A4) - nuclear staining of myoepithelial cells throughout papillary lesion. Myosin (A4) - nuclear staining of myoepithelial cells throughout papillary lesion. (ABRAMK:tim; 09/18/2021) . 02 Pathologist provided ICD-10: N60.11, N62, N60.21, D24.1 . 02 CPT . 758428, A08331, A30834 Specimen Comment: A courtesy copy of this report has been sent to [phone] Specimen Comment: Report sent to Specimen Comment: A duplicate report has been generated due to demographic updates. Performed at: 01 [facility] [address], [place] [id number] MD Marques Good MD Phone: [phone] Performed at: 02 [facility] [address] [place], [place] [id number] MD Anders Barkley MD Phone: [phone]
--- NOTE | 2021-09-20 14:34 | RAD ---
EXAM: MAMMOGRAPHIC GUIDED NEEDLE LOCALIZATION RIGHT BREAST CLINICAL HISTORY: Preoperative needle localization right breast, recent biopsy demonstrating a papillary lesion TECHNIQUE AND FINDINGS: Risks, benefits, treatment options, and potential complications were discussed with the patient. Consent was obtained and the patient indicated willingness to proceed. A time out was performed immediately prior to the procedure to correctly identify the patient, side, site, and type of procedure to be performed. The patient seated in the stereotactic chair and the right breast was placed in compression. Images were obtained and the area of concern was localized using a mammographic grid in the CC plane. The overlying skin was then sterilely prepped and local anesthesia was administered using 1% lidocaine in the skin and in the deeper soft tissues. The needle was then advanced with the breast compressed in the CC plane and later the ML plane until the needle tip was at the biopsy marker clip in the area of concern. The wire was then deployed in the medial was removed. Post wire deployment CC and ML views demonstrated that the wire was in adequate position on the ML view with the clip centered at the thickened segment of the wire. However, on the CC view, the wire appeared to advance further laterally upon deployment with the clip located 5.6 cm lateral to the tip of the wire and 2.5 cm lateral to the proximal margin of the thickened segment of the wire. Good hemostasis was achieved with light manual compression and the wire was secured to the skin. The patient tolerated the procedure without difficulty and was discharged from the radiology department in stable condition. IMPRESSION: Successful mammographically guided needle localization of the right breast with mild lateral migration of the wire tip upon deployment as described. Electronically signed by: Radu Causey DO (09/12/2021 10:26 AM) [facility]
--- NOTE | 2021-09-20 14:35 | RAD ---
EXAMINATION: MG DIGITAL BILAT DIAGNOSTIC MAMMO WITH KIM CLINICAL HISTORY: Surgical specimen right breast TECHNIQUE: Single radiographic image taken of the surgical specimen from the right breast. COMPARISON: Right breast needle localization 09/12/2021 FINDINGS/ IMPRESSION: Surgical specimen radiograph obtained demonstrating inclusion of the localization wire and biopsy marker clip in the region of interest. Electronically signed by: Radu Causey DO (09/12/2021 11:44 AM) [id number] MTDD
== END 2021-09-12 13:07 | disposition home or self-care (01) ==
LOC: SURG 07:24
PROVIDERS: ATTEND Surgery
DX: N63.10 Unspecified lump in the right breast, unspecified quadrant (principal); N60.11 Diffuse cystic mastopathy of right breast; D24.1 Benign neoplasm of right breast; N60.21 Fibroadenosis of right breast; I10 Essential (primary) hypertension; E78.00 Pure hypercholesterolemia, unspecified; J45.909 Unspecified asthma, uncomplicated; M19.90 Unspecified osteoarthritis, unspecified site; M10.9 Gout, unspecified; E11.9 Type 2 diabetes mellitus without complications; Z79.899 Other long term (current) drug therapy; Z79.84 Long term (current) use of oral hypoglycemic drugs; Z90.49 Acquired absence of other specified parts of digestive tract; Z98.890 Other specified postprocedural states; Z72.89 Other problems related to lifestyle; Z88.0 Allergy status to penicillin; Z88.8 Allergy status to other drugs, medicaments and biological substances
CPT/HCPCS: 19125; 82962; A4364; A4930; A6254; A6258; J1100; J1956; J2405; J2704; J3010; 19281; 76098; 88305; 88341; 88342; A4223; A4452; J3490